=== PATIENT | female | born 1935 | race American Indian/Alaskan Native ===

== ENCOUNTER 2017-03-15 17:30 | Emergency (ER) | payer MEDICARE, OTHER ==
[2017-03-15 17:39] VITALS: BMI 17.9
[2017-03-15 17:43] VITALS: PULSE 51; RESP 18; TEMP 98.1
--- NOTE | 2017-03-15 19:14 | ED PDOC ---
Arrival/HPI - General Chief Complaint: Medical Clearance Time Seen by Provider: 03/15/17 17:51 Historian: Family - History of Present Illness Narrative History of Present Illness (Text): 03/15/17 19:09 The pt is a 81yo female, sent to the Emergency department upon PCP (Dr. Alexander) request, for evaluation of low O2 sat levels. Pt accompanied by her daughter who provides history along with patient. Reports the pt has been asymptomatic and visited their provider to request a decrease in dosage levels of the pt's medications bc the pills were too big. While the pt was being evaluated, it was noted that she had oxygen levels of 74%, prompting the visit. At present, pt denies any shortness of breath, difficulty breathing and offers no additional medical complaints. PMD: Dr. Alexander Time/Duration: Prior to Arrival Past Medical History - Provider Review Nursing Documentation Reviewed: Yes - Infectious Disease Hx of Infectious Diseases: None - Cardiac Hx Hypertension: Yes - Neurological HX Cerebrovascular Accident: Yes (TIA's?; R sided weakness) Hx Dementia: Yes Hx Seizures: Yes - Musculoskeletal/Rheumatological Hx Arthritis: Yes Hx Falls: No - Psychiatric Hx Substance Use: No - Surgical History Hx Section: Yes (x1) - Anesthesia Hx Anesthesia: No Family/Social History - Physician Review Nursing Documentation Reviewed: Yes Family/Social History: Unknown Family HX Smoking Status: Never Smoked Hx Alcohol Use: No Hx Substance Use: No Allergies/Home Meds Allergies/Adverse Reactions: Allergies No Known Allergies Allergy (Verified 07/16/16 18:49) Home Medications: Home Meds Medication Instructions Recorded Confirmed Clopidogrel [Plavix] 1 tab PO DAILY 07/16/16 03/15/17 Donepezil [Aricept] 1 tab PO DAILY 07/16/16 03/15/17 Losartan [Cozaar] 1 tab PO DAILY 07/16/16 03/15/17 Metoprolol Tartrate [Lopressor] 1 tab PO BID 07/16/16 03/15/17 Nifedipine [Nifedipine Xl] 60 mg PO DAILY 07/16/16 03/15/17 Sertraline [Zoloft] 50 mg PO DAILY 07/16/16 03/15/17 Zolpidem [Ambien] 1 tab PO HS PRN 07/16/16 03/15/17 Meloxicam [Mobic] 1 tab PO DAILY 03/15/17 03/15/17 Simvastatin [Zocor] 1 tab PO HS 03/15/17 03/15/17 Review of Systems - Physician Review All systems were reviewed & negative as marked: Yes - Review of Systems Respiratory: absent: SOB, Other (difficulty breathing) Physical Exam Vital Signs Reviewed: Yes Vital Signs Temp Pulse Resp BP Pulse Ox 03/15/17 19:30 51 L 18 145/87 99 03/15/17 17:42 98.1 F 51 L 18 150/72 98 Temperature: Afebrile Blood Pressure: Normal Pulse: Regular Respiratory Rate: Normal Appearance: Positive for: Well-Appearing, Non-Toxic, Comfortable Pain Distress: None Mental Status: Positive for: Alert and Oriented X 3 - Systems Exam Head: Present: Atraumatic, Normocephalic Pupils: Present: PERRL Extroacular Muscles: Present: EOMI Conjunctiva: Present: Normal Mouth: Present: Moist Mucous Membranes Neck: Present: Normal Range of Motion Respiratory/Chest: Present: Clear to Auscultation, Good Air Exchange. No: Respiratory Distress, Accessory Muscle Use Cardiovascular: Present: Regular Rate and Rhythm, Normal S1, S2. No: Murmurs Abdomen: Present: Normal Bowel Sounds. No: Tenderness, Distention, Peritoneal Signs Back: Present: Normal Inspection Upper Extremity: Present: Normal Inspection. No: Cyanosis, Edema Lower Extremity: Present: Normal Inspection. No: Edema Neurological: Present: GCS=15, CN II-XII Intact, Speech Normal Skin: Present: Warm, Dry, Normal Color. No: Rashes Psychiatric: Present: Alert, Oriented x 3, Normal Insight, Normal Concentration Medical Decision Making ED Course and Treatment: 03/15/17 10:05 Impression: Hypoxia vs. malfunction of pulse ox machine Differential Diagnosis included but are not limited to: Plan: -- Pt to be observed in Emergency department for respiratory distress -- Reassess and disposition Progress Notes: 03/15/17 19:29 Pt still asymptomatic in Emergency department. Denies any chest pain or difficulty breathing. Stable for d/c home. - Scribe Statement The provider has reviewed the documentation as recorded by the Itaibred Arnold Provider Scribe Attestation: All medical record entries made by the Scribe were at my direction and personally dictated by me. I have reviewed the chart and agree that the record accurately reflects my personal performance of the history, physical exam, medical decision making, and the department course for this patient. I have also personally directed, reviewed, and agree with the discharge instructions and disposition. Disposition/Present on Arrival - Present on Arrival Any Indicators Present on Arrival: No History of DVT/PE: No History of Uncontrolled Diabetes: No Urinary Catheter: No History of Decub. Ulcer: No History Surgical Site Infection Following: None - Disposition Have Diagnosis and Disposition been Completed?: Yes Diagnosis: Worried well, Abnormal pulse oximetry Disposition: HOME/ ROUTINE Disposition Time: 19:58 Patient Plan: Discharge Condition: IMPROVED Additional Instructions: Ms Newton, thank you for letting us take care of you today. Your provider was Dr. Ley. You were treated for Suspected Hypoxia that was most likely pulse oximeter error. The emergency medical care you received today was directed at your acute symptoms. If you were prescribed any medication, please fill it and take as directed. It may take several days for your symptoms to resolve. Return to the Emergency Department if your symptoms worsen, do not improve, or if you have any other problems. Please contact your doctor or call one of the physicians/clinics you have been referred to that are listed on the Patient Visit Information form that is included in your discharge packet. Bring any paperwork you were given at discharge with you along with any medications you are taking to your follow up visit. Our treatment cannot replace ongoing medical care by a primary care provider (PCP) outside of the emergency department. Thank you for allowing the [facility] team to be part of your care today. If you had an X-Ray or CT scan: A Radiologist will review the ED reading if any change in treatment is needed we will contact you. If you had a blood, urine, or wound culture: It will take several days for the results, if any change in treatment is needed we will contact you. If you had an STI test: It will take 48 hours for the results. Please call after 1 week if you have not heard back. Referrals: Josué Alexander MD [Primary Care Provider] - Follow up with primary Forms: [employer] (Kiswahili)
[2017-03-15 19:53] VITALS: BP 145/87; O2SAT 99
== END 2017-03-15 19:58 | disposition home or self-care (01) ==
LOC: ED 17:30
DX: Z71.1 Person with feared health complaint in whom no diagnosis is made (principal); R79.81 Abnormal blood-gas level